=== PATIENT | male | born 1965 | race Hispanic/Latino ===

== ENCOUNTER → 2020-04-19 | Outpatient (CLI) | payer OTHER | END | disposition home or self-care (01) | LOC: SHCH 09:52 | PROVIDERS: ATTEND Internal Medicine Cardiovascular Disease | DX: I10 Essential (primary) hypertension (principal) | CPT/HCPCS: 93306 ==

== ENCOUNTER → 2020-04-20 | Outpatient (CLI) | payer OTHER ==
[~2020-04-20] MED LIST: REGADENOSON 0.4 MG/5 ML PF SYG IVP SCH
== END | disposition home or self-care (01) ==
LOC: SHCH 08:05 → EDUNIT# 08:10
PROVIDERS: ATTEND Internal Medicine Cardiovascular Disease
DX: I10 Essential (primary) hypertension (principal)
CPT/HCPCS: 78452; 93017; 96374; A9500 ×2; J2785

== ENCOUNTER → 2022-12-25 | Outpatient (CLI) | payer OTHER ==
[~2022-12-25] MED LIST changes: +AEC81 PO; +ATOR40TA69 PO; +CARV6.2579 PO; +CYAN100099 PO; +EMPA25TA PO; +FERS325 PO; +FURO20TA6 PO; +INSU100C6 SQ; +INSU100I21 SQ; +IOHEXOL 350 MG/ML 100ML INFUS..BTL IV ONE; +MAGN400T7 PO; -REGADENOSON 0.4 MG/5 ML PF SYG IVP SCH; +SACU1TAB PO
== END | disposition home or self-care (01) ==
LOC: RAH 11:25
PROVIDERS: ATTEND Internal Medicine Cardiovascular Disease
DX: I25.10 Atherosclerotic heart disease of native coronary artery without angina pectoris (principal)
CPT/HCPCS: 75574; Q9967

== ENCOUNTER 2024-07-11 12:09 | Emergency (ER) | payer OTHER ==
[~2024-07-11] VITALS: Ht 154.9 cm; Wt 76.2 kg
[~2024-07-11 12:09] MED LIST changes: -INSU100I21 SQ; +INSU100I22 SQ; -IOHEXOL 350 MG/ML 100ML INFUS..BTL IV ONE
[2024-07-11] MEDS: AMOX/CLAV 875/125MG TAB PO ONE (12:47)
[2024-07-11] MEDS: teTANUS/diphthERIA TOXOID [ADULT] 0.5 ML VIAL IM ONE (12:48)
[2024-07-11] MEDS ORDERED: AMOX1TAB16 PO (13:17)
[2024-07-11 13:41] VITALS: BP 132/60; PULSE 78; RESP 12; TEMP 98.5; O2SAT 98
== END 2024-07-11 13:42 | disposition home or self-care (01) ==
LOC: EDH 12:09
DX: S81.851A Open bite, right lower leg, initial encounter (principal); S81.051A Open bite, right knee, initial encounter; E11.9 Type 2 diabetes mellitus without complications; I10 Essential (primary) hypertension; E78.00 Pure hypercholesterolemia, unspecified; I25.10 Atherosclerotic heart disease of native coronary artery without angina pectoris; I25.2 Old myocardial infarction; Z79.84 Long term (current) use of oral hypoglycemic drugs; Z79.82 Long term (current) use of aspirin; Z79.899 Other long term (current) drug therapy; Z95.1 Presence of aortocoronary bypass graft; W54.0XXA Bitten by dog, initial encounter; Y93.89 Activity, other specified; Y92.488 Other paved roadways as the place of occurrence of the external cause; Y99.8 Other external cause status
CPT/HCPCS: 90471; 90714